=== PATIENT | female | born 1975 | race Caucasian/White ===

== ENCOUNTER → 2017-08-18 | Outpatient (CLI) | payer BC ==
--- NOTE | 2017-08-18 18:34 | XR ---
Cervical spine HISTORY: Neck pain 5 views of the cervical spine There is no significant foraminal encroachment with the exception of C3-4 bilaterally. Cervical verte bral bodies show preserved height, bone mineralization. Minimal retrolisthesis grade 1 C4-5. Anteroli sthesis grade 1 C6-7. There are facet arthropathy changes. Multilevel spondylosis is present. There i s a thoracic scoliosis. IMPRESSION: Mild facet arthropathy and degenerative disc disease.
== END | disposition home or self-care (01) ==
LOC: RADXRMAIN 16:03
PROVIDERS: ATTEND Internal Medicine Critical Care Medicine
DX: M50.30 Other cervical disc degeneration, unspecified cervical region (principal); M46.92 Unspecified inflammatory spondylopathy, cervical region
CPT/HCPCS: 72050

== ENCOUNTER → 2017-11-30 | Outpatient (CLI) | payer BC ==
[2017-11-30 12:20] LABS: Basophils # (A) 0.1 k/uL (0-0.2); Basophils % (A) 1 %; Eosinophils # (A) 0.1 k/uL (0-0.7); Eosinophils % (A) 2 %; HCT 39.1 % (34.0-46.0); HGB 13.8 gm/dL (11.4-16.0); Lymphocytes # (A) 1.9 k/uL (1.0-4.8); Lymphocytes % (A) 26 %; MCH 30.2 pg (25.0-35.0); MCHC 35.2 g/dL (31.0-37.0); MCV 85.8 fL (80.0-100.0); Mean Platelet Volume 6.6; Monocytes # (A) 0.5 k/uL (0-1.0); Monocytes % (A) 6 %; Neutrophils # (A) 4.7 k/uL (1.3-7.7); Neutrophils % (A) 64 %; Platelet Count 326 k/uL (150-450); RBC 4.56 m/uL (3.80-5.40); RDW 14.5 % (11.5-15.5); WBC 7.4 k/uL (3.8-10.6)
== END | disposition home or self-care (01) ==
LOC: LABPAT 11:37
PROVIDERS: ATTEND Obstetrics & Gynecology
DX: Z01.812 Encounter for preprocedural laboratory examination (principal)
CPT/HCPCS: 36415; 85025

== ENCOUNTER 2017-12-03 06:05 | Day surgery (SDC) | payer BC ==
[2017-11-30 09:35] VITALS: BMI 27.3
--- NOTE | 2017-12-02 19:24 | P.HPOB ---
History of Present Illness H&P Date: 12/02/17 Chief Complaint: Menorrhagia with regular cycle, family planning This is a 42-year-old female 4 para 3 who presents for dilation and curettage with hysteroscopy and NovaSure endometrial ablation along with IUD removal and laparoscopic bilateral tubal ligation. She complains of heavy and painful menses along with irregular menses and some menses occurring longer than usual. This is been worsening over the last 6 months. Her menses are occurring anywhere from 21-28 days and lasting 8-9 days with the first 4 days very heavy to where she has to change a pad and a super tampon every hour or 2. She has occasionally blood through both a tampon and the pad. Her pelvic ultrasound showed a uterus measuring 8.3 x 5.9 x 5.2 cm. Endometrium measured 9 mm and IUD was noted within the endometrium. The left ovary had a 2 cm probable hemorrhagic cyst. She would like definitive surgical treatment to control her bleeding in addition to family planning. Obstetrical history: . History of 3 vaginal deliveries. Gynecologic history: No history of sexual transmitted diseases. She has had a ParaGard IUD since 2008. Social history: She is and works as a teacher. Review of Systems Constitutional: Denies chills, Denies fever Eyes: denies blurred vision, denies pain Ears, nose, mouth and throat: Denies headache, Denies sore throat Cardiovascular: Denies chest pain, Denies shortness of breath Respiratory: Denies cough Gastrointestinal: Denies abdominal pain, Denies diarrhea, Denies nausea, Denies vomiting Genitourinary: Reports dysmenorrhea, Reports menorrhagia Menstruation: Reports menses variable, Reports period heavy Musculoskeletal: Denies myalgias Integumentary: Denies pruritus, Denies rash Neurological: Denies numbness, Denies weakness Psychiatric: Denies anxiety, Denies depression Endocrine: Denies fatigue, Denies weight change Past Medical History Past Medical History: Asthma Additional Past Medical History / Comment(s): migraines, heart murmer, variocose veins, History of Any Multi-Drug Resistant Organisms: None Reported Additional Past Surgical History / Comment(s): D&C Past Anesthesia/Blood Transfusion Reactions: No Reported Reaction Past Psychological History: Anxiety Smoking Status: Never smoker Past Alcohol Use History: None Reported Past Drug Use History: None Reported - Past Family History Mother Family Medical History: No Reported History Medications and Allergies Home Medications Medication Instructions Recorded Confirmed Type ALPRAZolam [Xanax] 0.25 mg PO HS 11/30/17 11/30/17 History Allergies Allergy/AdvReac Type Severity Reaction Status Date / Time No Known Allergies Allergy Verified 11/30/17 09:31 Exam Osteopathic Statement: *. No significant issues noted on an osteopathic structural exam other than those noted in the History and Physical/Consult. HEENT: Within normal limits Heart: Regular rate and rhythm Lungs: Clear to auscultation bilaterally Abdomen: Soft, nontender Pelvic exam: Uterus is mildly tender, anteverted, with no adnexal masses or tenderness noted. Extremities: Negative Homans Assessment and Plan (1) Menorrhagia with regular cycle Status: Acute Code(s): N92.0 - EXCESSIVE AND FREQUENT MENSTRUATION WITH REGULAR CYCLE SNOMED Code(s): 451848504 (2) Family planning Status: Acute Code(s): Z30.09 - ENCOUNTER FOR OT GENERAL CNSL AND ADVICE ON CONTRACEPTION SNOMED Code(s): 647442411 Plan: Proceed with dilation and curettage with hysteroscopy and NovaSure endometrial ablation along with IUD removal and laparoscopic bilateral tubal ligation via fulguration. I have discussed the risks, benefits, and alternative therapies for the above- mentioned procedure and for both sedation/anesthesia as well as necessary blood products administration, if indicated, as they pertain to this patient. The patient has indicated her understanding and acceptance of the risks and procedures discussed.
[~2017-12-03 06:05] MED LIST: DEXAMETHASONE SOD PHOSPHATE 10 MG/ML 1 ML VIAL IV ONE; HYDROmorphone 0.5 MG/0.5 ML SYRINGE IVP PRN; LACTATED RINGERS 1,000 ML IV SCH; ONDANSETRON 4 MG/2 ML VIAL IVP ONE; Pre Op ABX Message 1 EACH MISC MISCELLANE ONE
[2017-12-03] MEDS ORDERED: LIDOCAINE 1% 20 ML VIAL (10MG/ML) FOR IV START INTRADERMA ONE (06:56)
[2017-12-03] MEDS ORDERED: MIDAZOLAM 2 MG/2 ML VIAL IV ONE (07:00)
[2017-12-03] MEDS ORDERED: MIDAZOLAM 2 MG/2 ML VIAL ONE ×2 (07:02→07:36)
[2017-12-03] MEDS ORDERED: BUPIVACAINE (PF) 0.5% 30 ML VIAL SQ ONE ×3 (07:27→08:25)
[2017-12-03] MEDS ORDERED: PROPOFOL 10 MG/ML 20 ML VIAL IV ONE (07:36)
[2017-12-03] MEDS ORDERED: LIDOCAINE 1% INJ 10MG/ML (20 ML MDV) ONE (07:36)
[2017-12-03] MEDS ORDERED: SUCCINYLCHOLINE CHLORIDE 100 MG/5 ML SYR IV ONE (07:36)
[2017-12-03] MEDS ORDERED: fentaNYL (PF) 50 MCG/ML 2 ML AMP ONE (07:36)
[2017-12-03] MEDS ORDERED: KETOROLAC 30 MG/ML 1 ML VIAL ONE (07:36)
[2017-12-03] MEDS ORDERED: GLYCOPYRROLATE 0.2 MG/ML 2 ML VIAL ONE (07:36)
--- NOTE | 2017-12-03 08:36 | P.OP ---
Date of Procedure: 12/03/17 Preoperative Diagnosis: Menorrhagia with regular cycle Family planning Postoperative Diagnosis: Same Procedure(s) Performed: Dilation and curettage with NovaSure endometrial ablation Removal of IUD Laparoscopic bilateral tubal ligation via fulguration Anesthesia: TRUNG Surgeon: Dejah Aviles Estimated Blood Loss (ml): 5 Pathology: other (Endometrial curettings) Condition: stable Disposition: same day Indications for Procedure: This is a 42-year-old female 4 para 3 who presents for dilation and curettage with hysteroscopy and NovaSure endometrial ablation along with IUD removal and laparoscopic bilateral tubal ligation. She complains of heavy and painful menses along with irregular menses and some menses occurring longer than usual. This is been worsening over the last 6 months. Her menses are occurring anywhere from 21-28 days and lasting 8-9 days with the first 4 days very heavy to where she has to change a pad and a super tampon every hour or 2. She has occasionally blood through both a tampon and the pad. Her pelvic ultrasound showed a uterus measuring 8.3 x 5.9 x 5.2 cm. Endometrium measured 9 mm and IUD was noted within the endometrium. The left ovary had a 2 cm probable hemorrhagic cyst. She would like definitive surgical treatment to control her bleeding in addition to family planning. Operative Findings: Uterus is anteverted and is sounded to 9 cm. Cervix is sounded to 3 cm. Normal uterus tubes and ovaries are noted. There is a small omental adhesion noted over the left adnexal region. Appendix was visualized and appeared normal. Description of Procedure: The patient is taken to the operating room. She is placed in the dorsal lithotomy position after general anesthesia was given. She is prepped and draped in the normal sterile fashion. Bladder is drained with a catheter and then removed. Pelvic exam is performed under anesthesia. Uterus is found to be anteverted with no adnexal masses. She is placed in slight Trendelenburg position. A right angle retractor is used to visualize the cervix. The anterior lip of the cervix is grasped with a single-tooth tenaculum. ParaGard IUD strings are visualized and grasped with a ring forcep. IUD is easily removed and discarded. Cervix is sounded to 3 cm. Uterus is sounded to 9 cm. Cervix is gently dilated with George dilators until a hysteroscope could be passed. Hysteroscopy is performed using normal saline. The above noted findings are noted. Next a polyp forceps is introduced. A moderate amount of tissue was obtained. Next medium-sized size sharp curette was placed. A minimal to moderate amount of endometrial curettings were obtained. Next NovaSure array was inserted into the endometrial cavity. Length was set at 6 cm and width was determined to be 4 cm. Next cavity assessment was completed and passed on the first try. Next NovaSure array was fired at 132 W for 70 seconds. Next the array was removed, inspected and then discarded. Next the hysteroscope was reinserted. Uniform charring was noted. Pictures were taken. Hysteroscope was removed. Next the kroner uterine manipulator was then inserted through the cervix and the balloon was inflated. Single-tooth tenaculum was removed from the anterior lip of the cervix. Minimal bleeding was noted. All other instruments removed from the vagina. Gloves are changed and attention is turned to the abdomen. The infraumbilical fold was grasped in transverse fashion with 2 Allis clamps. A small transverse incision was made with a scalpel. A hemostat was used to carry the incision down to the underlying layer of fascia. A towel clip was placed above the umbilicus for retraction. A 11 mm disposable bladeless trocar was then inserted into the peritoneal cavity under direct visualization. Once inside, pneumoperitoneum was achieved with CO2 gas. The insert was removed and the camera was placed. Intraperitoneal placement was confirmed. No bleeding was noted. Next the patient was placed in Trendelenburg position. A small stab incision was made suprapubically and a 5 mm disposable bladeless trocar was inserted into the peritoneal cavity under direct visualization. Once inside pelvic contents were inspected. Next a bipolar Kleppinger instrument was placed through the inferior trocar and the midportion of each tube was brought away from other structures and completely fulgurated on approximate 2-3 cm segment of each tube. Excellent hemostasis was noted. A picture was taken. Pneumoperitoneum was released after the inferior trocar was removed under direct visualization. The upper trocar was then removed. The fascial incision was closed with 0 Vicryl suture in interrupted [id number] stitch. The skin incisions were then closed with 4-0 Vicryl suture in a subcuticular fashion. Incision sites were then injected with half percent Marcaine. Approximately 6 mL were used. Next the kroner uterine manipulator was removed. Minimal bleeding was noted. All sponge and needle counts are correct. The patient is then taken to recovery room in stable condition.
[2017-12-03 08:53] VITALS: TEMP 97.1
[2017-12-03] MEDS ORDERED: ONDANSETRON 4 MG/2 ML VIAL IVP ONE (09:00)
[2017-12-03] MEDS ORDERED: MEPERIDINE 50 MG/ML SYRINGE IVP ONE (09:05)
[2017-12-03] MEDS ORDERED: METOCLOPRAMIDE 5 MG/ML 2 ML VIAL IVP ONE (09:12)
[2017-12-03] MEDS ORDERED: LACTATED RINGERS 1,000 ML IV ONE (09:43)
[2017-12-03 11:47] VITALS: BP 115/76; PULSE 88; RESP 18
== END 2017-12-03 11:52 | disposition home or self-care (01) ==
LOC: OR 06:05
PROVIDERS: ATTEND Obstetrics & Gynecology
DX: Z30.2 Encounter for sterilization (principal); Z30.432 Encounter for removal of intrauterine contraceptive device; N92.0 Excessive and frequent menstruation with regular cycle; K66.0 Peritoneal adhesions (postprocedural) (postinfection); J45.909 Unspecified asthma, uncomplicated; G43.909 Migraine, unspecified, not intractable, without status migrainosus; R01.1 Cardiac murmur, unspecified; I83.90 Asymptomatic varicose veins of unspecified lower extremity; F41.9 Anxiety disorder, unspecified; Z79.899 Other long term (current) drug therapy; Z79.1 Long term (current) use of non-steroidal anti-inflammatories (NSAID)
CPT/HCPCS: 81025; 88305; 58301; 58563; 58670; J2250; J1100; J2765; J2175; J2405; J2001; J3010; J1885; J0330; J2704

== ENCOUNTER → 2020-03-30 | Outpatient (CLI) | payer BC ==
--- NOTE | 2020-04-06 10:00 | ECHOF ---
Referral Reason:I34 mitral valve prolapse MEASUREMENTS -------- HEIGHT: 154.9 cm WEIGHT: 70.3 kg BP: RVIDd: 2.2 cm (< 3.3) IVSd: 1.1 cm (0.6 - 1.1) LVIDd: 5.0 cm (3.9 - 5.3) LVPWd: 0.9 cm (0.6 - 1.1) IVSs: 1.5 cm LVIDs: 3.2 cm LVPWs: 1.5 cm LAESV Index (A-L): 34.11 ml/m Ao Diam: 2.7 cm (2.0 - 3.7) AV Cusp: 1.7 cm (1.5 - 2.6) LA Diam: 2.8 cm (2.7 - 3.8) MV EXCURSION: 24.989 mm (> 18.000) MV EF SLOPE: 146 mm/s (70 - 150) EPSS: 0.8 cm MV E Howie: 1.04 m/s MV DecT: 135 ms MV A Howie: 1.14 m/s MV E/A Ratio: 0.91 RAP: 5.00 mmHg RVSP: 20.27 mmHg FINDINGS -------- This was a technically adequate study. The left ventricular size is normal. Left ventricular wall thickness is normal. Overall left vent ricular systolic function is normal with, an EF between 55 - 60 %. Normal LAP Grade 1 Diastolic Dys function. The right ventricle is normal in size. LA is moderately dilated 34-39 ml/m2 The right atrial size is normal. The aortic valve is trileaflet and appears structurally normal. The mitral valve is normal. Mild mitral regurgitation is present. There is mild mitral valve prol apse. The tricuspid valve appears structurally normal. Mild tricuspid regurgitation present. Right vent ricular systolic pressure is normal at < 35 mmHg. There is no pulmonic regurgitation present. The aortic root size is normal. IVC Not well visulized. There is no pericardial effusion. CONCLUSIONS -------- 1. The left ventricular size is normal. 2. Left ventricular wall thickness is normal. 3. Overall left ventricular systolic function is normal with, an EF between 55 - 60 %. 4. Normal LAP Grade 1 Diastolic Dysfunction. 5. LA is moderately dilated 34-39 ml/m2 6. Mild mitral regurgitation is present. 7. There is mild mitral valve prolapse. 8. Mild tricuspid regurgitation present. 9. There is no pericardial effusion. SUPPORT SERVICES REP: Christin Evangelista RDCS
--- NOTE | 2020-04-09 11:25 | HM ---
24 hour Holter monitor shows sinus mechanism with infrequent PVCs. PVC burden less than 2% Occasional ventricular couplets and occasional bigeminal rhythm No sustained arrhythmias No significant bradycardia or pauses, heart rates ranged from 61-133 beats a minute average 87 beats a minute MTDD
== END | disposition home or self-care (01) ==
LOC: RADECHMAIN 11:24
PROVIDERS: ATTEND Internal Medicine Critical Care Medicine
DX: I08.1 Rheumatic disorders of both mitral and tricuspid valves (principal); I50.30 Unspecified diastolic (congestive) heart failure; R00.2 Palpitations
CPT/HCPCS: 93225; 93226; 93306

== ENCOUNTER → 2020-05-21 | Outpatient (CLI) | payer BC ==
--- NOTE | 2020-05-22 09:38 | MM ---
Reason for exam: screening (asymptomatic). Last mammogram was performed 2 years and 4 months ago. Physical Findings: A clinical breast exam by your physician is recommended on an annual basis and results should be correlated with mammographic findings. MG 3D Screening Mammo W/Cad Bilateral CC and MLO view(s) were taken. Prior study comparison: January 29, 2018, bilateral MG screening mammo w CAD. December 31, 2011, bilateral digital screening mammo w/CAD. The breast tissue is heterogeneously dense. This may lower the sensitivity of mammography. Asymmetric breast tissue left posterior outer quadrant, stable. There is no discrete abnormality. ASSESSMENT: Negative, BI-RAD 1 RECOMMENDATION: Routine screening mammogram of both breasts in 1 year.
== END | disposition home or self-care (01) ==
LOC: RADMAMWWP 10:13
PROVIDERS: ATTEND Obstetrics & Gynecology
DX: Z12.31 Encounter for screening mammogram for malignant neoplasm of breast (principal)
CPT/HCPCS: 77063; 77067

== ENCOUNTER → 2021-02-12 | Outpatient (CLI) | payer BC ==
[2021-02-12 15:44] LABS: Basophils # (A) 0.1 k/uL (0-0.2); Basophils % (A) 1 %; Eosinophils # (A) 0.1 k/uL (0-0.7); Eosinophils % (A) 1 %; HCT 43.2 % (34.0-46.0); HGB 14.6 gm/dL (11.4-16.0); Lymphocytes # (A) 2.6 k/uL (1.0-4.8); Lymphocytes % (A) 29 %; MCH 30.4 pg (25.0-35.0); MCHC 33.7 g/dL (31.0-37.0); MCV 90.2 fL (80.0-100.0); Mean Platelet Volume 7.6; Monocytes # (A) 0.5 k/uL (0-1.0); Monocytes % (A) 6 %; Neutrophils # (A) 5.4 k/uL (1.3-7.7); Neutrophils % (A) 62 %; Platelet Count 305 k/uL (150-450); RBC 4.79 m/uL (3.80-5.40); RDW 12.5 % (11.5-15.5); WBC 8.8 k/uL (3.8-10.6)
[2021-02-12 15:54] LABS: African American GFR (CKD) >90 (>60 ml/min/1.73 sqM); Anion Gap 8 mmol/L; Blood Urea Nitrogen 10 mg/dL (7-17); Calcium 9.2 mg/dL (8.4-10.2); Carbon Dioxide 26 mmol/L (22-30); Chloride 104 mmol/L (98-107); Glucose 101 mg/dL (74-99); Non-African American GFR(CKD) >90 (>60 ml/min/1.73 sqM); Potassium 3.8 mmol/L (3.5-5.1); Sodium 138 mmol/L (137-145)
== END | disposition home or self-care (01) ==
LOC: LABPAT 15:14
PROVIDERS: ATTEND Obstetrics & Gynecology
DX: Z01.812 Encounter for preprocedural laboratory examination (principal)
CPT/HCPCS: 36415; 80048; 85025

== ENCOUNTER 2021-02-20 05:55 | Inpatient (IN) | payer BC ==
[2021-02-15 15:22] VITALS: BMI 29.2
--- NOTE | 2021-02-19 13:43 | P.HPOB ---
History of Present Illness H&P Date: 02/19/21 Chief Complaint: Uterine prolapse, dysmenorrhea, uterine fibroids This is a 45 y.o. female, 4, para 3, who presents for total vaginal hysterectomy, possible total abdominal hysterectomy with bilateral salpingectomy due to dysmenorrhea, abdominal cramping and lower back pain for about a year. She has a history of an endometrial ablation in 2018. She currently does not have any bleeding, but these symptoms occur for about 3 days each month. Pain has worsened to the point that Ibuprofen is no longer helping. Ultrasound shows uterus measures 9.2 x 6.4 x 4.2 cm with endometrium 0.98 cm and multiple fibroids, largest 3.8 cm on the right. Right ovary shows a complex cyst measuring 1.7 cm and left ovary has small simple cysts less than 1 cm. Grade 1 uterine prolapse was noted on exam. OB Hx: . History of 3 vaginal deliveries. 1 miscarriage. Charge Entry Specialist Hx: No history of STDs. History of tubal ligation and endometrial ablation. Social Hx: . Works as a teacher. Review of Systems Constitutional: Denies chills, Denies fever Eyes: denies blurred vision, denies pain Ears, nose, mouth and throat: Denies headache, Denies sore throat Cardiovascular: Denies chest pain, Denies shortness of breath Respiratory: Denies cough Gastrointestinal: Denies abdominal pain, Denies diarrhea, Denies nausea, Denies vomiting Genitourinary: Reports dysmenorrhea, Reports prolapse symptoms, Denies dysuria, Denies hematuria Menstruation: Reports amenorrhea (endometrial ablation) Musculoskeletal: Reports low back pain (during cycle) Integumentary: Denies pruritus, Denies rash Neurological: Denies numbness, Denies weakness Psychiatric: Denies anxiety, Denies depression Past Medical History Past Medical History: Asthma, Mitral Valve Prolapse (MVP) Additional Past Medical History / Comment(s): migraines, heart murmer, variocose veins, UTERINE FIBROIDS/CYSTS History of Any Multi-Drug Resistant Organisms: None Reported Past Surgical History: Tubal Ligation, Uterine Ablation Additional Past Surgical History / Comment(s): D&C Past Anesthesia/Blood Transfusion Reactions: Postoperative Nausea & Vomiting (PONV) Past Psychological History: Anxiety Smoking Status: Never smoker Past Alcohol Use History: None Reported Past Drug Use History: None Reported - Past Family History Mother Family Medical History: No Reported History Medications and Allergies Home Medications Medication Instructions Recorded Confirmed Type ALPRAZolam [Xanax] 0.25 mg PO HS 11/30/17 02/20/21 History Loratadine [Claritin] 10 mg PO DAILY 02/15/21 02/20/21 History Allergies Allergy/AdvReac Type Severity Reaction Status Date / Time No Known Allergies Allergy Verified 02/20/21 06:26 Exam Osteopathic Statement: *. No significant issues noted on an osteopathic structural exam other than those noted in the History and Physical/Consult. HEENT: within normal limits Heart: regular rate and rhythm Lungs: clear to auscultation bilaterally Abdomen: soft, non-tender Pelvic: uterus mildly tender, anteverted, slightly bulky, with 1st degree prolapse; no adnexal masses, but left adnexa slightly tender. Extremities: negative Jeffery's. Assessment and Plan (1) Dysmenorrhea Current Visit: No Status: Acute Code(s): N94.6 - DYSMENORRHEA, UNSPECIFIED SNOMED Code(s): 422724864 (2) Uterine prolapse Current Visit: No Status: Acute Code(s): N81.4 - UTEROVAGINAL PROLAPSE, UNSPECIFIED SNOMED Code(s): 75930804 (3) Uterine fibroid Current Visit: No Status: Acute Code(s): D25.9 - LEIOMYOMA OF UTERUS, UNSPECIFIED SNOMED Code(s): 07866936 Plan: Proceed with total vaginal hysterectomy, possible total abdominal hysterectomy with bilateral salpingectomy. I have discussed the risks, benefits, and alternative therapies for the above- mentioned procedure and for both sedation/anesthesia as well as necessary blood products administration, if indicated, as they pertain to this patient. The patient has indicated her understanding and acceptance of the risks and procedures discussed.
[~2021-02-20 05:55] MED LIST changes: -DEXAMETHASONE SOD PHOSPHATE 10 MG/ML 1 ML VIAL IV ONE; -HYDROmorphone 0.5 MG/0.5 ML SYRINGE IVP PRN; -LACTATED RINGERS 1,000 ML IV SCH; +LIDOCAINE 1% (10MG/ML) FOR IV START INTRADERMA PRN; -Pre Op ABX Message 1 EACH MISC MISCELLANE ONE
[2021-02-20] MEDS: LACTATED RINGERS 1,000 ML IV SCH ×3 (06:42→10:58)
[2021-02-20] MEDS ORDERED: DEXAMETHASONE SOD PHOSPHATE 4 MG/ML 1 ML VIAL IV ONE (06:44)
[2021-02-20] MEDS ORDERED: HYDROmorphone 0.5 MG/0.5 ML SYRINGE IVP PRN (07:00)
[2021-02-20] MEDS ORDERED: MIDAZOLAM 2 MG/2 ML VIAL IVP ONE (07:09)
[2021-02-20] MEDS ORDERED: MORPHINE SULFATE (PF) 0.3 MG/0.3 ML SYR ONE (07:25)
[2021-02-20] MEDS ORDERED: PROPOFOL 10 MG/ML 50 ML VIAL IV ONE (07:25)
[2021-02-20] MEDS ORDERED: KETOROLAC 15 MG/ML 1 ML VIAL ONE (07:25)
[2021-02-20] MEDS ORDERED: fentaNYL (PF) 50 MCG/ML 2 ML AMP ONE (07:25)
[2021-02-20] MEDS ORDERED: SUCCINYLCHOLINE CHLORIDE 100 MG/5 ML SYR IV ONE (07:25)
[2021-02-20] MEDS ORDERED: ROCURONIUM 10 MG/ML (5 ML VIAL) IV ONE (07:25)
[2021-02-20] MEDS ORDERED: LIDOCAINE 1% INJ 10MG/ML (20 ML MDV) ONE (07:25)
[2021-02-20] MEDS ORDERED: NEOSTIGMINE 1 MG/ML 10 ML VIAL ONE (07:25)
[2021-02-20] MEDS ORDERED: GLYCOPYRROLATE 0.2 MG/ML 2 ML VIAL ONE (07:25)
[2021-02-20] MEDS ORDERED: diphenhydrAMINE 50 MG/ML 1 ML VIAL ONE ×2 (07:29→09:27)
[2021-02-20] MEDS ORDERED: diphenhydrAMINE 50 MG/ML 1 ML VIAL IVP ONE ×2 (07:30→09:28)
[2021-02-20] MEDS ORDERED: LACTATED RINGERS 1,000 ML IV ONE (08:43)
--- NOTE | 2021-02-20 08:48 | P.OP ---
Date of Procedure: 02/20/21 Preoperative Diagnosis: Uterine prolapse Dysmenorrhea Uterine fibroids Postoperative Diagnosis: Same Procedure(s) Performed: Total vaginal hysterectomy Anesthesia: GETA, spinal (Duramorph) Surgeon: Dejah Aviles Physical Sciences Instructor #1: Robyn Aparicio Estimated Blood Loss (ml): 50 Pathology: other (Uterus with cervix) Condition: stable Disposition: floor Indications for Procedure: This is a 45 y.o. female, 4, para 3, who presents for total vaginal hysterectomy, possible total abdominal hysterectomy with bilateral salpingectomy due to dysmenorrhea, abdominal cramping and lower back pain for about a year. She has a history of an endometrial ablation in 2018. She currently does not have any bleeding, but these symptoms occur for about 3 days each month. Pain has worsened to the point that Ibuprofen is no longer helping. Ultrasound shows uterus measures 9.2 x 6.4 x 4.2 cm with endometrium 0.98 cm and multiple fibroids, largest 3.8 cm on the right. Right ovary shows a complex cyst measuring 1.7 cm and left ovary has small simple cysts less than 1 cm. Grade 1 uterine prolapse was noted on exam. Operative Findings: Uterus is anteverted, with slight enlargement. Both tubes are visualized and appeared normal. Both ovaries are visualized and appear normal. There is grade 1 uterine prolapse. Description of Procedure: The patient is taken the operating room where she is placed in the dorsal lithotomy position. She is prepped and draped in the normal sterile fashion. Next a weighted speculum was placed in the patient's vagina and a right angle retractor was used to visualize the cervix. The anterior lip of the cervix is grasped with a single-tooth tenaculum. Next the cervix was circumferentially injected with one amp of epinephrine to 150 mL of normal saline. Next the cervix was circumscribed with a scalpel. The vaginal mucosa was pushed away from the cervix with a sponge. Next the uterosacral ligaments are clamped on either side with a Teresa clamp, cut with Neal scissors, and then sutured with 0 Vicryl suture in a Teresa transfixion stitch and then held on either side with a straight hemostat. Next the posterior peritoneal reflection was identified and entered sharply with Neal scissors. The edges of the vaginal mucosa was then tagged with 0 Vicryl suture and held with a curved hemostat for identification. Next a longbilled weighted speculum was placed through the posterior peritoneal reflection. Next the cardinal ligaments were clamped on either side with Teresa clamps, cut with Neal scissors, and then sutured with 0 Vicryl suture in Teresa transfixion stitches and cut. Next the vesicouterine peritoneum reflection is identified and entered sharply with Metzenbaum scissors. A right angle bladder retractor is then used to retract the bladder. The uterine arteries are clamped on either side with Teresa clamps, cut with Neal scissors, and then sutured with 0 Vicryl suture in Teresa transfixion stitches. The round ligament is also clamped on either side with a Teresa clamp, cut with Neal scissors, and sutured with 0 Vicryl suture in Teresa transfixion stitches. Next the uterine ovarian ligament and tube were clamped on either side with a Teresa clamp, cut with Neal scissors, and then sutured with 0 Vicryl suture in a [id number] stitch, flashed, and then free tied with another suture of 0 Vicryl suture. These pedicles were held with a straight Ramone for identification. The uterus is removed from the field. Good hemostasis is noted. Next the peritoneum is closed with 0 Vicryl suture in a pursestring fashion incorporating all the held ligaments. Again neither ovary was visualized prior to closing the vaginal cuff area. Both tubes are visualized and appeared normal. Both ovaries are also visualized and appears normal. Next the uterine ovarian ligaments are tied together in the middle and cut. Next the vaginal cuff is sutured with 0 Vicryl suture in a running locked fashion. The uterosacral ligaments were also tied together in the midline prior to completely closing the vaginal cuff. Excellent hemostasis is noted. The Ramires catheter is inserted and clear urine is noted. Next the vagina is packed with one-inch iodoform gauze with bacitracin ointment. All sponge and needle counts are correct and the patient is then taken to recovery room in stable condition.
[2021-02-20] MEDS ORDERED: METOCLOPRAMIDE 5 MG/ML 2 ML VIAL IVP PRN (10:12)
[2021-02-20] MEDS ORDERED: ONDANSETRON 4 MG/2 ML VIAL IVP PRN (10:12)
[2021-02-20] MEDS ORDERED: diphenhydrAMINE 50 MG/ML 1 ML VIAL IVP PRN (10:12)
[2021-02-20] MEDS ORDERED: ZOLPIDEM 5 MG TAB PO PRN (10:12)
[2021-02-20] MEDS ORDERED: SCOPOLAMINE 1.5MG/72HR PATCH TRANSDERM STA (10:31)
[2021-02-20 11:53] LABS: Basophils % (A) 0 %; Eosinophils % (A) 0 %; HCT 33.4 % (34.0-46.0); Lymphocytes # (A) 0.9 k/uL (1.0-4.8); Lymphocytes % (A) 5 %; MCH 30.9 pg (25.0-35.0); MCHC 34.5 g/dL (31.0-37.0); MCV 89.6 fL (80.0-100.0); Mean Platelet Volume 7.5; Monocytes # (A) 0.3 k/uL (0-1.0); Monocytes % (A) 2 %; Neutrophils # (A) 15.9 k/uL (1.3-7.7); Neutrophils % (A) 93 %; Platelet Count 261 k/uL (150-450); RBC 3.72 m/uL (3.80-5.40); RDW 12.1 % (11.5-15.5); WBC 17.1 k/uL (3.8-10.6)
[2021-02-20 12:17] LABS: HGB 11.5 gm/dL (11.4-16.0)
[2021-02-20] MEDS: KETOROLAC 15 MG/ML 1 ML VIAL IVP PRN ×2 (17:31→23:41)
[2021-02-20] MEDS: SENNOSIDES-DOCUSATE SODIUM 1 EACH TAB PO SCH ×2 (20:35→20:42)
[2021-02-20] MEDS: LORATADINE 10 MG TAB PO SCH (20:36)
[2021-02-20] MEDS: ALPRAZolam 0.25 MG TAB PO SCH (23:40)
[2021-02-21] MEDS: KETOROLAC 15 MG/ML 1 ML VIAL IVP PRN (05:28)
[2021-02-21 07:31] LABS: Basophils % (A) 0 %; Eosinophils % (A) 0 %; Lymphocytes # (A) 1.7 k/uL (1.0-4.8); Lymphocytes % (A) 16 %; MCH 31.5 pg (25.0-35.0); Mean Platelet Volume 7.9; Monocytes # (A) 0.7 k/uL (0-1.0); Monocytes % (A) 7 %; Neutrophils # (A) 8.1 k/uL (1.3-7.7); Neutrophils % (A) 75 %; Platelet Count 249 k/uL (150-450); RDW 12.5 % (11.5-15.5); WBC 10.8 k/uL (3.8-10.6)
[2021-02-21] MEDS ORDERED: ACETAMINOPHEN TAB 325 MG TAB PO PRN (07:43)
[2021-02-21 08:08] LABS: HGB 9.5 gm/dL (11.4-16.0)
[2021-02-21] MEDS: ACETAMINOPHEN TAB 325 MG TAB PO PRN ×3 (09:35→22:18)
--- NOTE | 2021-02-21 09:38 | CT ---
EXAMINATION TYPE: CT angio chest DATE OF EXAM: 02/21/2021 COMPARISON: None HISTORY: Chest pain, low O2 sat, S/P hysterectomy CT DLP: 234.70 mGycm CONTRAST: CT chest with contrast and 3D reconstruction with MIP imaging is performed without and with IV Contra st, patient injected with 100 ml mL of Isovue 370. Contrast-enhanced CT of the chest was performed through the course of the pulmonary arteries with gilles g and mediastinal window settings submitted. 3D reconstruction with MIP imaging was also performed. PULMONARY ARTERIES: The pulmonary arteries and their major tributaries are patent. I do not see david dence for sizable filling defect to suggest pulmonary embolic process. LUNGS: Basilar atelectasis and pleural effusions noted. Underlying infiltrates not excluded. MEDIASTINUM: Thoracic aorta is of normal caliber,however, evaluation is limited given timing of the contrast bolus. If there is concern for thoracic aortic pathology consider FLORIAN. Correlate clinicall y . The heart is is enlarged. No evidence for mediastinal mass. No mediastinal lymph nodes greater than 1cm. HILAR STRUCTURES: No evidence for mass. No hilar lymph nodes greater than 1 cm. UPPER ABDOMEN: No significant abnormality is seen. IMPRESSION: 1. No evidence for Pulmonary embolism at this time. 2. Pleural effusions with basilar compressive atelectasis and/or infiltrates with cardiomegaly. Corre late for mild failure.
[2021-02-21] MEDS: LORATADINE 10 MG TAB PO SCH ×3 (10:42→12:02)
--- NOTE | 2021-02-21 11:32 | P.PN ---
Subjective Progress Note Date: 02/21/21 Principal diagnosis: S/P TVH POD#1 Pt. seen earlier this morning. Pt. had alot of nausea & vomiting immediately after surgery and did have some hypotension. This did improve with fluid resuscitation. She still states it's hard to take a deep breath in and it hurts in her chest. She has urinated and bleeding has been minimal vaginally. No flatus or BM yet. Has not eaten anything yet. Denies any significant pain in her abdomen. Objective - Vital Signs Vital signs: Vital Signs Temp 98.0 F 02/21/21 10:30 Pulse 86 02/21/21 10:30 Resp 18 02/21/21 10:30 BP 107/62 02/21/21 10:30 Pulse Ox 96 02/21/21 10:30 Intake & Output 02/20/21 02/21/21 02/21/21 18:59 06:59 18:59 Intake Total 1350 100 Output Total 700 900 600 Balance 650 -800 -600 Intake: IV 1350 Oral 100 Output: Urine 600 900 600 Uretheral (Ramires) 600 Emesis 50 Estimated Blood Loss 50 Other: Voiding Method Indwelling Catheter # Voids 2 - Constitutional General appearance: Present: no acute distress - Respiratory Respiratory: bilateral: CTA - Cardiovascular Rhythm: regular - Gastrointestinal General gastrointestinal: Present: decreased bowel sounds, soft, tenderness (minimal) - Labs CBC & Chem 7: 02/21/21 06:51 Labs: Abnormal Lab Results - Last 24 Hours (Table) 02/20/21 02/21/21 Range/Units 11:31 06:51 WBC 17.1 H 10.8 H (3.8-10.6) k/uL RBC 3.72 L 3.00 L (3.80-5.40) m/uL Hgb 9.5 L D (11.4-16.0) gm/dL Hct 33.4 L 27.0 L (34.0-46.0) % Neutrophils # 15.9 H 8.1 H (1.3-7.7) k/uL Lymphocytes # 0.9 L (1.0-4.8) k/uL Assessment and Plan Assessment: S/P TVH POD#1 Chest pain, decreased O2 sats-R/O PE (1) Dysmenorrhea Current Visit: No Status: Acute Code(s): N94.6 - DYSMENORRHEA, UNSPECIFIED SNOMED Code(s): 741252915 (2) Uterine prolapse Current Visit: No Status: Acute Code(s): N81.4 - UTEROVAGINAL PROLAPSE, UNSPECIFIED SNOMED Code(s): 20715584 (3) Uterine fibroid Current Visit: No Status: Acute Code(s): D25.9 - LEIOMYOMA OF UTERUS, UNSPECIFIED SNOMED Code(s): 55967670 Plan: Will order CT of chest to r/o PE and consult pulmonology. Continue incentive spirometry. Will try to advance diet today.
--- NOTE | 2021-02-21 12:38 | P.CNPUL ---
<Arlet Maxwell - Last Filed: 02/21/21 12:27> History of Present Illness Consult date: 02/21/21 Requesting physician: Dejah Aviles Reason for consult: dyspnea, abnormal CXR/CT Chief complaint: Dysmenorrhea, abdominal cramping History of present illness: This is a very pleasant 45-year-old female patient who follows with Dr. Olmedo as her primary care provider. She has a history of mitral valve prolapse with murmur, anxiety. Lifelong nonsmoker. She had been having issues with dysmenorrhea, abdominal cramping and low back pain for approximately one year. She was admitted here on 02/20/2021 for an elective vaginal hysterectomy that was performed without complication. In the [facility] department upon her arrival yesterday she was having some issues with hypotension. She was given 1.5 L of fluid retested dictation and placed in Trendelenburg. She subsequently recovered and was doing better. Earlier this morning however she is complaining of some midsternal chest discomfort and shortness of breath. She was sent for a CT angiogram that ruled out pulmonary embolism. She was found to have some pleural effusions with basilar compressive atelectasis and cardiomegaly. We are consulted for the same. Presently, she is sitting up in bed. Awake and alert in no acute distress. She is requiring nasal O2 at 1 L to maintain O2 saturations in the mid 90s. 90% on room air. Afebrile. She is only pulling approximately 500 ML's on the incentive spirometer. She needs increased encouragement. Increased activity. White count 10.8. Hemoglobin 9.5, down from 11.5 yesterday. Surgical reports 50 ML's of blood loss during the procedure. Review of Systems REVIEW OF SYSTEMS: CONSTITUTIONAL: Denies any recent significant weight loss or weight gain. EYES: Denies change in vision. EARS, NOSE, MOUTH, THROAT: Denies headaches, denies sore throat. CARDIOVASCULAR: Positive for chest pain, no palpitations or syncopal episodes. RESPIRATORY: Positive for shortness of breath, cough, congestion no hemoptysis. GASTROINTESTINAL: Denies change in appetite, denies abdominal pain GENITOURINARY: Denies hematuria, denies infections. MUSKULOSKELETAL: Denies pain, denies swelling. INTEGUMENTARY: Denies rash, denies eczema. NEUROLOGICAL: Denies recent memory loss, no recent seizure activity. PSYCHIATRIC: Denies anxiety, denies depression. HEMATOLOGIC/LYMPHATIC: Denies anemia, denies enlarged lymph nodes. Past Medical History Past Medical History: Asthma, Mitral Valve Prolapse (MVP) Additional Past Medical History / Comment(s): migraines, heart murmer, variocose veins, UTERINE FIBROIDS/CYSTS History of Any Multi-Drug Resistant Organisms: None Reported Past Surgical History: Tubal Ligation, Uterine Ablation Additional Past Surgical History / Comment(s): D&C Past Anesthesia/Blood Transfusion Reactions: Postoperative Nausea & Vomiting (PONV) Past Psychological History: Anxiety Smoking Status: Never smoker Past Alcohol Use History: None Reported Past Drug Use History: None Reported - Past Family History Mother Family Medical History: No Reported History Medications and Allergies Home Medications Medication Instructions Recorded Confirmed Type ALPRAZolam [Xanax] 0.25 mg PO HS 11/30/17 02/20/21 History Loratadine [Claritin] 10 mg PO DAILY 02/15/21 02/20/21 History Allergies Allergy/AdvReac Type Severity Reaction Status Date / Time No Known Allergies Allergy Verified 02/20/21 06:26 Physical Exam Vitals: Vital Signs Temp Pulse Resp BP Pulse Ox 02/21/21 12:00 98.4 F 100 18 120/55 96 02/21/21 10:30 98.0 F 86 18 107/62 96 02/21/21 08:00 98.5 F 86 16 92/52 96 02/21/21 05:26 97 02/21/21 05:22 90 L 02/21/21 04:00 97.4 F L 87 16 94/50 96 02/21/21 02:00 72 16 92/55 95 02/20/21 23:47 74 16 100/50 96 02/20/21 22:00 82 16 92/59 02/20/21 20:00 96.9 F L 81 16 99/54 98 02/20/21 16:00 98.0 F 78 16 96/51 100 Intake and Output 02/20/21 02/21/21 02/21/21 22:59 06:59 14:59 Intake Total 100 Output Total 300 600 600 Balance -200 -600 -600 Intake: Oral 100 Output: Urine 300 600 600 Uretheral (Ramires) 600 Other: Voiding Method Indwelling Catheter # Voids 2 GENERAL EXAM: Alert, alert, pleasant 45-year-old female patient, on 1 L nasal cannula, comfortable in no apparent distress. HEAD: Normocephalic. EYES: Normal reaction of pupils, equal size. NOSE: Clear with pink turbinates. THROAT: No erythema or exudates. NECK: No masses, no JVD. CHEST: No chest wall deformity. LUNGS: Equal air entry with faint crackles in the bilateral bases. CVS: S1 and S2 normal with no audible murmur, regular rhythm. ABDOMEN: No hepatosplenomegaly, normal bowel sounds, no guarding or rigidity. SPINE: No scoliosis or deformity SKIN: No rashes CENTRAL NERVOUS SYSTEM: No focal deficits, tone is normal in all 4 extremities. EXTREMITIES: There is no peripheral edema. No clubbing, no cyanosis. Peripheral pulses are intact. Results - Laboratory Findings CBC and BMP: 02/21/21 06:51 Abnormal lab findings: Abnormal Labs 02/20/21 02/21/21 11:31 06:51 WBC 17.1 H 10.8 H RBC 3.72 L 3.00 L Hgb 9.5 L D Hct 33.4 L 27.0 L Neutrophils # 15.9 H 8.1 H Lymphocytes # 0.9 L - Diagnostic Findings CT scan - chest: image reviewed Assessment and Plan Assessment: 1 Dysmenorrhea, uterine fibroids, uterine prolapse, status post total vaginal hysterectomy. Postoperative day #1 2 Hypotension in the postoperative period requiring 1.5 L fluid resuscitation 3 Acute mild hypoxemic respiratory failure secondary to fluid volume overload/atelectasis 4 Atypical chest pain, pulmonary embolism ruled out Plan: The patient was seen and evaluated by Dr. Meier CAT scan and labs reviewed Encouraged increased use of the incentive spirometer and cough and deep breathing exercises Increase her activity as tolerated Titrate down the FiO2 as tolerated May consider diuretics if blood pressure stable We will continue to follow and make further recommendations based on her clinical status I, the cosigning physician, performed a history & physical examination of the patient. Lungs sounds with faint crackles in the posterior bases. Maintaining good O2 saturations in the 90s on 1 L/m per nasal cannula. I discussed the assessment and plan of care with my nurse practitioner, Arlet Maxwell. I attest to the above note as dictated by her. Time with Patient: Greater than 30 <Betina Meier - Last Filed: 02/21/21 13:28> Physical Exam Vitals: Vital Signs Temp Pulse Resp BP Pulse Ox 02/21/21 12:00 98.4 F 100 18 120/55 96 02/21/21 10:30 98.0 F 86 18 107/62 96 02/21/21 08:00 98.5 F 86 16 92/52 96 02/21/21 05:26 97 02/21/21 05:22 90 L 02/21/21 04:00 97.4 F L 87 16 94/50 96 02/21/21 02:00 72 16 92/55 95 02/20/21 23:47 74 16 100/50 96 02/20/21 22:00 82 16 92/59 02/20/21 20:00 96.9 F L 81 16 99/54 98 02/20/21 16:00 98.0 F 78 16 96/51 100 Intake and Output 02/20/21 02/21/21 02/21/21 22:59 06:59 14:59 Intake Total 100 Output Total 300 600 600 Balance -200 -600 -600 Intake: Oral 100 Output: Urine 300 600 600 Uretheral (Ramires) 600 Other: Voiding Method Indwelling Catheter # Voids 2 Results - Laboratory Findings CBC and BMP: 02/21/21 06:51 Abnormal lab findings: Abnormal Labs 02/20/21 02/21/21 11:31 06:51 WBC 17.1 H 10.8 H RBC 3.72 L 3.00 L Hgb 9.5 L D Hct 33.4 L 27.0 L Neutrophils # 15.9 H 8.1 H Lymphocytes # 0.9 L Assessment and Plan Assessment: joint evaluation with nurse practitioner. Likely that the patient could have had episode of aspiration postop. There may be a component of fluid overload also. As such, is reasonable to cover this patient with Augmentin 875 mg by mouth twice a day for the next one week. Obtain a baseline echocardiogram. Check a pro-calcitonin level. Encouraged use of incentive spirometer. She is currently on room air oxygen with pulse ox of 94%. Increased mobility. We'll follow. Plan: (
[2021-02-21] MEDS: IBUPROFEN 600 MG TAB PO PRN ×2 (13:30→20:15)
[2021-02-21] MEDS: SENNOSIDES-DOCUSATE SODIUM 1 EACH TAB PO SCH ×2 (13:45→20:16)
[2021-02-21] MEDS: AMOXIC-POT CLAV 875-125MG 1 EACH TAB PO SCH ×2 (14:02→20:15)
--- NOTE | 2021-02-21 14:53 | P.PN ---
Progress Note - Text Progress Note Date: 02/21/21 Postoperative day 1 status post total vaginal hysterectomy under general endotr acheal anesthesia, and intrathecal morphine given for postoperative analgesia, patient doing well, there is no anesthesia related complications, Patient had no headache, vital signs stable , Assessment and plan= postop day 1 status post total vaginal hysterectomy, there is no anesthesia related complication.
[2021-02-21] MEDS: HEPARIN SODIUM,PORCINE/PF 5,000 UNIT/0.5 ML SYRINGE SQ SCH (16:01)
[2021-02-21] MEDS: ALPRAZolam 0.25 MG TAB PO SCH ×3 (20:04→22:19)
[2021-02-21] MEDS: SIMETHICONE 80 MG CHEWABLE PO PRN (22:20)
[2021-02-21] MEDS: LACTATED RINGERS 1,000 ML IV SCH (22:29)
[2021-02-22] MEDS: IBUPROFEN 600 MG TAB PO PRN ×2 (01:01→09:12)
[2021-02-22] MEDS: HEPARIN SODIUM,PORCINE/PF 5,000 UNIT/0.5 ML SYRINGE SQ SCH ×2 (01:02→07:46)
[2021-02-22] MEDS: ACETAMINOPHEN TAB 325 MG TAB PO PRN (04:42)
[2021-02-22 07:12] LABS: Basophils # (A) 0.1 k/uL (0-0.2); Basophils % (A) 1 %; Eosinophils # (A) 0.1 k/uL (0-0.7); Eosinophils % (A) 2 %; HCT 28.6 % (34.0-46.0); HGB 9.8 gm/dL (11.4-16.0); Lymphocytes # (A) 2.4 k/uL (1.0-4.8); Lymphocytes % (A) 26 %; MCHC 34.4 g/dL (31.0-37.0); MCV 90.3 fL (80.0-100.0); Mean Platelet Volume 7.3; Monocytes # (A) 0.5 k/uL (0-1.0); Monocytes % (A) 6 %; Neutrophils % (A) 65 %; Platelet Count 257 k/uL (150-450); RBC 3.17 m/uL (3.80-5.40); RDW 12.4 % (11.5-15.5); WBC 9.3 k/uL (3.8-10.6)
[2021-02-22] MEDS: SENNOSIDES-DOCUSATE SODIUM 1 EACH TAB PO SCH (07:45)
[2021-02-22] MEDS: AMOXIC-POT CLAV 875-125MG 1 EACH TAB PO SCH (07:46)
--- NOTE | 2021-02-22 07:56 | ECHOF ---
Referral Reason:Cardiomegaly MEASUREMENTS -------- HEIGHT: 154.9 cm WEIGHT: 69.9 kg BP: 120/55 RVIDd: 3.6 cm (< 3.3) IVSd: 1.2 cm (0.6 - 1.1) LVIDd: 5.0 cm (3.9 - 5.3) LVPWd: 1.4 cm (0.6 - 1.1) IVSs: 1.3 cm LVIDs: 3.3 cm LVPWs: 1.6 cm LAESV Index (A-L): 36.61 ml/m Ao Diam: 2.3 cm (2.0 - 3.7) AV Cusp: 1.4 cm (1.5 - 2.6) LA Diam: 2.7 cm (2.7 - 3.8) MV EXCURSION: 20.468 mm (> 18.000) MV EF SLOPE: 106 mm/s (70 - 150) EPSS: 0.6 cm MV E Howie: 1.24 m/s MV DecT: 137 ms MV A Howie: 1.11 m/s MV E/A Ratio: 1.11 RAP: 5.00 mmHg RVSP: 39.95 mmHg FINDINGS -------- Sinus rhythm. This was a technically difficult study with suboptimal views. The left ventricular size is normal. There is mild concentric left ventricular hypertrophy. Overa ll left ventricular systolic function is low-normal with, an EF between 50 - 55 %. The right ventricle is mildly enlarged. LA is moderately dilated 34-39 ml/m2 The right atrial size is normal. 5.0mg of Lumason was utilized for enhancement of images Interatrial and interventricular septum intact. There is no evidence of aortic regurgitation. There is no evidence of aortic stenosis. Mild mitral regurgitation is present. There is mild mitral valve prolapse. Mild tricuspid regurgitation present. There is mild pulmonary hypertension. The right ventricular systolic pressure, as measured by Doppler, is 39.95mmHg. There is no pulmonic regurgitation present. The aortic root size is normal. IVC Not well visulized. There is no pericardial effusion. CONCLUSIONS -------- 1. The left ventricular size is normal. 2. There is mild concentric left ventricular hypertrophy. 3. Overall left ventricular systolic function is low-normal with, an EF between 50 - 55 %. 4. The right ventricle is mildly enlarged. 5. LA is moderately dilated 34-39 ml/m2 6. Mild mitral regurgitation is present. 7. There is mild mitral valve prolapse. 8. Mild tricuspid regurgitation present. 9. There is mild pulmonary hypertension. 10. The right ventricular systolic pressure, as measured by Doppler, is 39.95mmHg. CHANGE MANAGEMENT EXPERT: Lakesha Veliz RDCS
[2021-02-22 08:26] VITALS: RESP 20
[2021-02-22 08:28] VITALS: BP 129/67; PULSE 89; TEMP 98.5
[2021-02-22] MEDS: SIMETHICONE 80 MG CHEWABLE PO PRN (09:20)
[2021-02-22] MEDS ORDERED: LORATADINE 10 MG TAB PO SCH (12:00)
--- NOTE | 2021-02-22 12:17 | P.DS ---
Providers Date of admission: 02/22/21 08:44 Expected date of discharge: 02/22/21 Attending physician: Dejah Aviles Consults: 02/21/21 10:00 Consult Physician Urgent Consulting Provider: Betina Meier Consult Reason/Comments: Chest pain, decreased sats after hysterectomy, no PE Do you want consulting provider notified?: Yes Primary care physician: Vance Olmedo - Discharge Diagnosis(es) (1) Dysmenorrhea Current Visit: No Status: Acute (2) Uterine prolapse Current Visit: No Status: Acute (3) Uterine fibroid Current Visit: No Status: Acute Hospital Course: This is a 45-year-old female who underwent a total vaginal hysterectomy on 02/20/2021. Postoperatively she had initially some hypotension with nausea and vomiting. She also was having lower oxygen saturations and shortness of breath with chest pain. CT of the chest was obtained which showed no evidence of pulmonary embolism but did show pleural effusions with basilar compressive atelectasis and/or infiltrates with some cardiomegaly. Pulmonology was consulted and ordered antibiotics and a cardiac echo. She was also placed on heparin subcutaneously. Currently she is tolerating regular diets and ambulating. She is urinating without difficulty. Bleeding has been very minimal and only with wiping. She does still have some shortness of breath with exertion and some pain with inspiration at the lower rib cage area. Surgical pain has been minimal and has been controlled with ibuprofen. She is passing some flatus but no bowel movement yet. She does state that she does pass flatus and does give her some sharp pains. Vital signs are stable. Lungs are clear to auscultation bilaterally. Abdomen is soft with positive bowel sounds 4. Emily- pad shows almost no bleeding. Extremities show negative Homans. Impression is status post total vaginal hysterectomy postoperative day #2. Plan is to discharge home as long as she is cleared by pulmonology. Will discharge home on ibuprofen and continue Augmentin for a total of 7 days per pulmonology. She is advised to follow up in the office in 1 week. She is advised to continue taking stool softeners at home. She is advised to call the office if she has any further questions or concerns prior to her appointment time. She is advised no heavy lifting, no driving, no intercourse. Procedures: Total vaginal hysterectomy on 02/20/2021 Patient Condition at Discharge: Stable Plan - Discharge Summary Discharge Rx Participant: Yes New Discharge Prescriptions: New Amoxic-Pot Clav 875-125Mg [Augmentin 875-125] 1 each PO Q12HR #12 tab Ibuprofen [Motrin] 600 mg PO Q6HR PRN #60 tab PRN Reason: Mild Discomfort Continue ALPRAZolam [Xanax] 0.25 mg PO HS Loratadine [Claritin] 10 mg PO DAILY Discharge Medication List ALPRAZolam [Xanax] 0.25 mg PO HS 11/30/17 [History] Loratadine [Claritin] 10 mg PO DAILY 02/15/21 [History] Amoxic-Pot Clav 875-125Mg [Augmentin 875-125] 1 each PO Q12HR #12 tab 02/22/21 [Rx] Ibuprofen [Motrin] 600 mg PO Q6HR PRN #60 tab 02/22/21 [Rx] Follow up Appointment(s)/Referral(s): Dejah Aviles DO [Doctor of Osteopathic Medicine] - 1 Week Activity/Diet/Wound Care/Special Instructions: Activity as tolerated with no heavy lifting. Diet as tolerated. May shower, but no tub baths for at least 1 week. No driving for at least 1 week. No intercourse. Discharge Disposition: HOME SELF-CARE
--- NOTE | 2021-02-22 13:12 | P.PN ---
Subjective Progress Note Date: 02/22/21 This is a very pleasant 45-year-old female patient who follows with Dr. Olmedo as her primary care provider. She has a history of mitral valve prolapse with murmur, anxiety. Lifelong nonsmoker. She had been having issues with dysmenorrhea, abdominal cramping and low back pain for approximately one year. She was admitted here on 02/20/2021 for an elective vaginal hysterectomy that was performed without complication. In the [facility] department upon her arrival yesterday she was having some issues with hypotension. She was given 1.5 L of fluid retested dictation and placed in Trendelenburg. She subsequently recovered and was doing better. Earlier this morning however she is complaining of some midsternal chest discomfort and shortness of breath. She was sent for a CT angiogram that ruled out pulmonary embolism. She was found to have some pleural effusions with basilar compressive atelectasis and cardiomegaly. We are consulted for the same. Presently, she is sitting up in bed. Awake and alert in no acute distress. She is requiring nasal O2 at 1 L to maintain O2 saturations in the mid 90s. 90% on room air. Afebrile. She is only pulling approximately 500 ML's on the incentive spirometer. She needs increased encouragement. Increased activity. White count 10.8. Hemoglobin 9.5, down from 11.5 yesterday. Surgical reports 50 ML's of blood loss during the procedure. The patient is seen today 02/22/2021 in follow-up on the [facility] unit. She is currently sitting up in bed. Awake and alert in no acute distress. Breathing easier today compared to yesterday. No further chest discomfort. Maintaining O2 saturations in the 90s on room air. White count 9.3. Hemoglobin 9.8. Pro-calcitonin 0.11. She is continued on Augmentin. Heparin for DVT prophylaxis. Motrin for pain control. Echocardiogram revealed preserved left ventricular systolic function with ejection fraction 50-55%. Mild mitral regurgitation. Mild mitral valve prolapse. Mild pulmonary hypertension. RVSP 39.95 mmHg. Objective - Vital Signs Vital signs: Vital Signs Temp 98.5 F 02/22/21 08:00 Pulse 89 02/22/21 08:00 Resp 20 02/22/21 08:00 BP 129/67 02/22/21 08:00 Pulse Ox 95 02/22/21 08:00 Intake & Output 02/21/21 02/22/21 02/22/21 18:59 06:59 18:59 Output Total 600 Balance -600 Output: Urine 600 Other: # Voids 1 2 - Exam GENERAL EXAM: Alert, active, 45-year-old female patient, on room air, comfortable in no apparent distress. HEAD: Normocephalic. EYES: Normal reaction of pupils, equal size. NOSE: Clear with pink turbinates. THROAT: No erythema or exudates. NECK: No masses, no JVD. CHEST: No chest wall deformity. LUNGS: Equal air entry with no crackles, wheeze, rhonchi or dullness. CVS: S1 and S2 normal with no audible murmur, regular rhythm. ABDOMEN: No hepatosplenomegaly, normal bowel sounds, no guarding or rigidity. SPINE: No scoliosis or deformity SKIN: No rashes CENTRAL NERVOUS SYSTEM: No focal deficits, tone is normal in all 4 extremities. EXTREMITIES: There is no peripheral edema. No clubbing, no cyanosis. Peripheral pulses are intact. - Labs CBC & Chem 7: 02/22/21 06:27 Labs: Abnormal Lab Results - Last 24 Hours (Table) 02/21/21 02/22/21 Range/Units 06:51 06:27 RBC 3.17 L (3.80-5.40) m/uL Hgb 9.8 L (11.4-16.0) gm/dL Hct 28.6 L (34.0-46.0) % Procalcitonin 0.11 H (0.02-0.09) ng/mL Assessment and Plan Assessment: 1 Dysmenorrhea, uterine fibroids, uterine prolapse, status post total vaginal hysterectomy. Postoperative day #2 2 Hypotension in the postoperative period requiring 1.5 L fluid resuscitation, recovered and hemodynamically stable 3 Acute mild hypoxemic respiratory failure secondary to fluid volume overload/atelectasis, recovered and on room air 4 Atypical chest pain, pulmonary embolism ruled out, echocardiogram revealed no significant findings Plan: Patient's case reviewed and discussed with Dr. Meier Cleared for discharge from the pulmonary standpoint Complete a course of Augmentin Follow up with Dr. Olmedo in 1-2 weeks' Encouraged to continue to use the incentive spirometer and cough and deep breathing exercises I, the cosigning physician, performed a history & physical examination of the patient. Lungs sounds clear bilaterally. Maintaining good O2 saturations in the 90s on room air. I discussed the assessment and plan of care with my nurse practitioner, Arlet Maxwell. I attest to the above note as dictated by her.
== END 2021-02-22 13:30 | disposition home or self-care (01) | DRG 742 ==
LOC: OR 05:55 → 4FBP 09:51 → OR 02-21 01:10 → OBSVTOIN 02-22 08:44
PROVIDERS: ADMIT Obstetrics & Gynecology; ATTEND Obstetrics & Gynecology
PROC: 0UTC0ZZ Resection of Cervix, Open Approach (ICD-10-PCS; principal; 2021-02-22)
PROC: 0UT70ZZ Resection of Bilateral Fallopian Tubes, Open Approach (ICD-10-PCS; principal; 2021-02-22)
PROC: 0UT90ZZ Resection of Uterus, Open Approach (ICD-10-PCS; principal; 2021-02-22)
DX: D25.9 Leiomyoma of uterus, unspecified (principal); J96.01 Acute respiratory failure with hypoxia; J90 Pleural effusion, not elsewhere classified; J98.11 Atelectasis; G43.909 Migraine, unspecified, not intractable, without status migrainosus; I27.20 Pulmonary hypertension, unspecified; I34.1 Nonrheumatic mitral (valve) prolapse; I95.9 Hypotension, unspecified; N94.6 Dysmenorrhea, unspecified; N83.202 Unspecified ovarian cyst, left side; N83.201 Unspecified ovarian cyst, right side; R07.89 Other chest pain; N81.4 Uterovaginal prolapse, unspecified; E87.70 Fluid overload, unspecified; F41.9 Anxiety disorder, unspecified; J45.909 Unspecified asthma, uncomplicated; Z98.51 Tubal ligation status; Z86.79 Personal history of other diseases of the circulatory system; M54.59 Other low back pain
CPT/HCPCS: 71275; 81025; 84145; 85025; 86850; 86900; 86901; 88305; 93306

== ENCOUNTER → 2021-04-01 | Outpatient (CLI) | payer BC | END | disposition home or self-care (01) | LOC: LABPRL 15:00 → LAB 04-02 10:00 | PROVIDERS: ATTEND Obstetrics & Gynecology | DX: R19.7 Diarrhea, unspecified (principal) | CPT/HCPCS: 87328; 87329 ==

== ENCOUNTER → 2021-09-16 | Outpatient (CLI) | payer BC ==
--- NOTE | 2021-09-18 09:42 | MM ---
Reason for exam: screening (asymptomatic). Last mammogram was performed 1 year and 4 months ago. History: Patient is postmenopausal. Physical Findings: A clinical breast exam by your physician is recommended on an annual basis and results should be correlated with mammographic findings. MG 3D Screening Mammo W/Cad Bilateral CC and MLO view(s) were taken. Prior study comparison: May 21, 2020, bilateral MG 3d screening mammo w/cad. January 29, 2018, bilateral MG screening mammo w CAD. The breast tissue is heterogeneously dense. This may lower the sensitivity of mammography. There is no discrete abnormality. ASSESSMENT: Negative, BI-RAD 1 RECOMMENDATION: Routine screening mammogram of both breasts in 1 year.
== END | disposition home or self-care (01) ==
LOC: RADMAMWWP 15:36
PROVIDERS: ATTEND Obstetrics & Gynecology
DX: Z12.31 Encounter for screening mammogram for malignant neoplasm of breast (principal); Z78.0 Asymptomatic menopausal state
CPT/HCPCS: 77063; 77067

== ENCOUNTER → 2021-12-09 | Outpatient (CLI) | payer BC ==
[2021-12-09 14:53] LABS: ALT 32 U/L (8-44); AST 24 U/L (13-35); African American GFR (CKD) 125.1 (60.0-200.0); Albumin 4.3 g/dL (3.8-4.9); Albumin/Globulin Ratio 1.59 (1.60-3.17); Alkaline Phosphatase 99 U/L (41-126); BUN/Creat Ratio 12.55 Ratio (12.00-20.00); Blood Urea Nitrogen 7.8 mg/dL (9.0-27.0); Calcium 9.4 mg/dL (8.7-10.3); Carbon Dioxide 26.2 mmol/L (20.0-27.5); Chloride 103 mmol/L (96-109); Chol/HDL Ratio 3.05 Ratio; Follicle Stimulating Hormone 3.8 mIU/mL; Globulin 2.7 g/dL (1.6-3.3); Glucose 94 mg/dL (70-110); LDL Cholesterol,Calculated 97.3 mg/dL (0.0-131.0); Non-African American GFR(CKD) 107.9 (60.0-200.0); Potassium 4.4 mmol/L (3.5-5.5); Sodium 139 mmol/L (135-145)
[2021-12-09 15:12] LABS: Luteinizing Hormone 11.9 mIU/mL
== END | disposition home or self-care (01) ==
LOC: LABWHC1 09:05
PROVIDERS: ATTEND Obstetrics & Gynecology
DX: E55.9 Vitamin D deficiency, unspecified (principal); N95.1 Menopausal and female climacteric states
CPT/HCPCS: 36415; 80053; 80061; 82306; 82670; 83001; 83002; 83036; 84439; 84443

== ENCOUNTER → 2024-11-04 | Outpatient (CLI) | payer BC ==
--- NOTE | 2024-11-04 09:33 | MM ---
Reason for Exam: Screening (asymptomatic). Last mammogram was performed 3 year(s) and 2 month(s) ago. Patient History: Menarche at age 12. First Full-Term at age 24. Hysterectomy at age 46. Postmenopausal. Patient has history of breast feeding. Patient used Hormonal Contraceptives for 6 years. Risk Values: Rhoda 5 year model risk: 0.8%. NCI Lifetime model risk: 8.2%. Prior Study Comparison: 01/29/2018 Bilateral Screening Mammogram, [facility]. 05/21/2020 Bilateral Screening Mammogram, [facility]. 09/16/2021 Bilateral Screening Mammogram, [facility]. Tissue Density: The breasts are heterogeneously dense, which may obscure small masses. Findings: Analyzed By CAD. There is no suspicious group of microcalcifications or new suspicious mass in either breast. Overall Assessment: Benign, BI-RAD 2 Management: Screening Mammogram of both breasts in 1 year. . Patient should continue monthly self-breast exams. A clinical breast exam by your physician is recommended on an annual basis. This exam should not preclude additional follow-up of suspicious palpable abnormalities. Note on Rhoda scores and lifetime risk: 1. A Rhoda score greater than 3% is considered moderate risk. If this is the case, consider specialist referral to assess eligibility for a risk reducing agent. 2. If overall lifetime risk for the development of breast cancer is 20% or higher, the patient may qualify for future screening with alternating mammogram and breast MRI. [facility], , 11/04/2024 9:30 AM. Electronically signed and approved by: Pasha Chiu M.D. Radiologis
== END | disposition home or self-care (01) ==
LOC: RADMAMWWP 09:04
PROVIDERS: ATTEND Obstetrics & Gynecology
DX: Z12.31 Encounter for screening mammogram for malignant neoplasm of breast (principal); R92.333 Mammographic heterogeneous density, bilateral breasts; Z78.0 Asymptomatic menopausal state; Z92.0 Personal history of contraception
CPT/HCPCS: 77063; 77067